=== PATIENT | male | born 1980 ===

== ENCOUNTER 2024-12-16 17:50 | Emergency (ER) | payer MEDICAID ==
[~2024-12-16] VITALS: Ht 172.7 cm; Wt 80.0 kg
[2024-12-16 17:54] VITALS: O2SAT 97
[2024-12-16 18:32] VITALS: BP 123/79; PULSE 60; RESP 16; TEMP 37; O2SAT 99
== END 2024-12-16 20:50 | disposition left against medical advice (07) ==
LOC: ER 17:50
DX: R07.89 Other chest pain (principal)
CPT/HCPCS: 71045; 93005; 99281